=== PATIENT | female | born 1960 | race Caucasian/White ===

== ENCOUNTER 2020-05-14 11:44 | Outpatient (REF) | payer MEDICAID, SELFPAY ==
[2020-05-14 13:53] LABS: Anion Gap 12 (12-20); Blood Urea Nitrogen 10 mg/dL (9-16); Carbon Dioxide 29 mmol/L (22-29); Chloride 105 mmol/L (96-108); Estimated Glomerular Filt Rate > 60; Glucose Random 114 mg/dL (60-115); Potassium 4.3 mmol/L (3.3-5.1); Sodium 142 mmol/L (135-145)
== END 2020-05-14 11:45 | disposition home or self-care (01) ==
LOC: HO.LAB 11:44
PROVIDERS: PCP Internal Medicine; Visit Provider Internal Medicine
DX: I10 Essential (primary) hypertension (principal)
CPT/HCPCS: 36415; 80048

== ENCOUNTER 2022-12-02 10:53 | Outpatient (REF) | payer MEDICAID, SELFPAY ==
[2022-12-02 14:15] LABS: MANUAL DIFF FLAG NO
[2022-12-02 14:18] LABS: Basophils Percent Auto 0.3 % (0-2); Eosinophils Absolute Auto 0.2 X10*3/uL (0.0-0.4); Eosinophils Percent Auto 2.4 % (0-4); Hematocrit 40.4 % (37.0-47.0); Hemoglobin 13.4 g/dl (12.0-16.0); Imm Gran Abs Auto 0.03 X10*3/uL (0.00-0.03); Imm Gran Pct Auto 0.4 % (0.0-0.4); Lymphocytes Percent Auto 39.6 % (20-40); Mean Corpuscular HGB Conc 33.2 g/dl (31.0-35.0); Mean Corpuscular Hemoglobin 30.5 pg (27.0-33.0); Mean Platelet Volume 10.8 fL (9.4-12.3); Monocytes Absolute Auto 0.4 X10*3/uL (0.1-1.2); Monocytes Percent Auto 5.5 % (2-11); Neutrophils Absolute Auto 3.9 x10*3/uL (2.0-8.3); Neutrophils Percent Auto 51.8 % (45-73); Platelet Count 313 X10*3/uL (160-400); Red Blood Count 4.39 X10*6/uL (4.20-5.50); Red Cell Distribution Width 13.3 % (11.0-16.0); White Blood Count 7.5 X10*3/uL (4.8-10.8)
[2022-12-02 14:35] LABS: Alanine Aminotransferase 21 U/L (0-31); Alkaline Phosphatase 84 U/L (39-117); Anion Gap 12 (12-20); Aspartate Amino Transferase 22 U/L (5-31); Bilirubin Direct 0.1 mg/dL (0.0-0.5); Bilirubin Total 0.3 mg/dL (0.0-1.0); Blood Urea Nitrogen 9 mg/dL (9-16); Calcium 9.7 mg/dL (8.4-10.2); Carbon Dioxide 28 mmol/L (22-29); Chloride 107 mmol/L (96-108); Estimated Glomerular Filt Rate > 60; Glucose Fasting 118 mg/dL (60-99); Potassium 4.1 mmol/L (3.3-5.1); Sodium 143 mmol/L (135-145); Total Protein 7.3 g/dL (6.5-8.0)
[2022-12-02 14:49] LABS: Estimated Average Glucose 131 mg/dL; Hemoglobin A1c % 6.2 % (<6.0)
[2022-12-02 14:53] LABS: TSH reflex Free T4 2.14 uIU/mL (0.32-4.0)
== END 2022-12-02 10:54 | disposition home or self-care (01) ==
LOC: HO.CHCLDS 10:53
PROVIDERS: Visit Provider Internal Medicine
DX: Z00.00 Encounter for general adult medical examination without abnormal findings (principal); I15.8 Other secondary hypertension; R73.01 Impaired fasting glucose
CPT/HCPCS: 36415; 80048; 80076; 83036; 84443; 85025

== ENCOUNTER 2023-06-01 10:16 | Outpatient (REF) | payer MEDICAID, SELFPAY ==
[2023-06-01 16:10] LABS: Cholesterol 215 mg/dL (<200); HDL Cholesterol 47 mg/dL (>40); LDL Cholesterol Calculated 143 mg/dL (<100); Triglycerides 128 mg/dL (<150)
== END 2023-06-01 10:17 | disposition home or self-care (01) ==
LOC: HO.CHCLDS 10:16
PROVIDERS: Visit Provider Internal Medicine
DX: E11.9 Type 2 diabetes mellitus without complications (principal)
CPT/HCPCS: 36415; 80061

== ENCOUNTER 2024-07-06 14:43 | Outpatient (REF) | payer MEDICAID, SELFPAY ==
--- OUTSIDE RECORDS SUMMARY | 2024-07-06 17:22 | XMS_ITS | Encounter Summary ---
Author Organization [employer] [facility] Address [address] [place] [address] 7 [place] [address] Care Team Providers Care Cheese Cutter Name Role Phone Carmen Fiore MD Primary Care Provider [phone] Reason for Referral * Consultation (Urgent) - Authorized Specialty Diagnoses / Procedures Referred By Contac t Referred To Contact Urogynecology Diagnoses Uterine prolapse Debora Camarena CNM [address] [place] [address] Phone: tel: fax: [facility] Referral ID Status Reason Start Date Expiration Date Visits Requested Visits Authorized [id number] Authorized Specialty Services Required 07/06/2024 07/06/2025 1 1 * Imaging (Routine) - Authorized Specialty Diagnoses / Procedures Referred By Contac t Referred To Contact Radiology Diagnoses Menopausal and female climacteric states Unspecified menopausal and perimenopausal disorder Procedures BD DEXA Axial Debora Camarena CNM [address] [place] [address] Phone: tel: fax: [facility] [address] [place] [address] Phone: tel: fax: Referral ID Status Reason Start Date Expiration Date V isits Requested Visits Authorized [id number] Authorized 07/06/2024 07/06/2025 1 1 Reason for Visit * Reason Comments Gynecologic Exam Encounter Details Date Type Department Care Team (Latest Contact Info) Description 07/06/2024 11:00 AM EDT Procedure Visit [facility] [address] [place] [address] Nicol Debora, CNM [address] [place] [address] Cervical cancer screening (Primary Dx); Unspecified menopausal and perimenopausal disorder; Uterine prolapse Social History Tobacco Use Types Packs/Day Years Used Date Smoking Tobacco: Every Day Cigarettes 1 40 Smokeless Tobacco: Never Tobacco Cessation:Ready to Q uit: Not Asked; Counseling Given: Not Answered Alcohol Use Standard Drinks/Week Comments Not Currently 0 (1 standard drink = 0.6 oz pur e alcohol) Depression Answer Date Recorded Patient Health Questionnaire-9 Score 0 01/20/2024 Patient Health Questionnaire-9 Score 0 01/20/2024 Last PHQ-9: Questionnaire Data Not on file 1 Housing Stability Answer Date Recorded What is your housing situation today? I have bella luna 11/26/[address] you li ve. Do you have problems with any of the following? None of the above 11/26/2023 Food Insecurity Answer Date Recorded Within the past 12 months, y ou worried that your food would run out before you got money to buy more: Never True 11/26/2023 Within the past 12 months,th e food you bought just didn't last and you didn't have enough money to get more: Never True Transportation Answer Date Recorded In the past 12 months, has l ack of transportation kept you from medical appts, meetings, work or from getting things needed for daily living? No 11/26/2023 Utilities Answer Date Recorded In the past 12 months, has t he electric, gas, oil or water company threatened to shut off services in your home? No 11/26/2023 Depression Answer Date Recorded Patient Health Questionnaire-2 Score 0 01/20/2024 Internet Access Answer Date Recorded Internet Access Q1 Yes 11/26/2023 Internet Access Q2 Not on file 11/26/2023 Comments No Sex and Gender Information Value Date Recorded Sex Assigned at Female 01/26/2022 10:15 AM EDT Legal Sex Female 10:15 AM EDT Gender Identity Female 01/26/2022 10:15 AM EDT Sexual Orientation Straight 01/26/2022 10 :15 AM EDT documented as of this encounter Last Filed Vital Signs Vital Sign Reading Time Taken Comments Blood Pressure 133/73 07/06/2024 11:03 AM EDT Pulse 69 07/06/2024 11:03 AM EDT Temperature 36.4 ??C (97.5 ??F) 07/06/2024 11:03 AM E DT Respiratory Rate 20 07/06/2024 11:03 AM EDT Oxygen Saturation 97% 07/06/2024 11:03 AM EDT Inhaled Oxygen Concentration - - Weight 72.7 kg (160 lb 3.2 oz) 07/06/2024 11:03 AM EDT Height 154.9 cm (5' 1 ) 07/06/2024 11:03 AM EDT Body Mass Index 30.27 07/06/2024 11:03 AM EDT documented in this encounter Progress Notes * Debora Camarena CNM - 07/06/2024 11:00 AM EDT Subjective Patient ID: Giuliana Bill is a 63 y.o. female who presents for pap Here with , John, who remained for visit with Giuliana's consent. No pap on file. Previously declined mammogram and BMD. Mammogram was very painful, adamant about not having another. Open to BMD after discussion of testing. No personal fracture. Notes vaginal mass sensation, no other vaginal/urinary symptoms. Thinks last pap about 7 y ago, no prior abnormal. Patient seen in conjunction with LISA Amaya student. I was present for and confirmed all pertinent elements in the history, exam, assessment of the patient, and the plan of care, and agree with all findings. Review of Systems Genitourinary: Negative for dyspareunia, dysuria, frequency, genital sores, hematuria, menstrual problem, pelvic pain, urgency, vaginal bleeding, vaginal discharge and vaginal pain. No abnormal pap, no abnormal bleeding, no breast pain, no breast mass, no nipple discharge Objective BP 133/73 (BP Location: Left arm, Patient Position: Sitting, BP Cuff Size: Large adult) Pulse 69 Temp 97.5 ??F (36.4 ??C) (Oral) Resp 20 Ht 5' 1 (1.549 m) Wt 160 lb 3.2 oz (72.7 kg) HrP162% BMI 30.27 kg/m?? Physical Exam Exam conducted with a aircraft ordnance technician present (Debora Camarena). Constitutional: Appearance: Normal appearance. Chest: Breasts: Right: Normal. No swelling, bleeding, inverted nipple, mass, nipple discharge, skin change or tenderness. Left: Normal. No swelling, bleeding, inverted nipple, mass, nipple discharge, skin change or tenderness. Genitourinary: General: Normal vulva. Labia: Right: No rash, tenderness, lesion or injury. Left: No rash, tenderness, lesion or injury. Vagina: Normal. No signs of injury and foreign body. No vaginal discharge, erythema, tenderness, bleeding or lesions. Cervix: No cervical motion tenderness, discharge, friability, lesion, erythema, cervical bleeding or eversion. Uterus: Normal. Not enlarged and not tender. Adnexa: Right adnexa normal and left adnexa normal. Right: No mass, tenderness or fullness. Left: No mass, tenderness or fullness. Comments: Ovaries non palpable bilaterally. Poor tone with Kegels, mild uterine as well as vaginal wall prolapse noted. Lymphadenopathy: Upper Body: Right upper body: No supraclavicular or axillary adenopathy. Left upper body: No supraclavicular or axillary adenopathy. Neurological: Mental Status: She is alert. Psychiatric: Mood and Affect: Mood normal. Behavior: Behavior normal. Assessment/Plan Diagnoses and all orders for this visit: Cervical cancer screening - Pap Smear Pap/HPV sent today. Will contact with results. Repeat 5 years if normal. Report bleeding. Strongly urged to get mammogram. Can premedicate with NSAIDs or Tylenol. She will think about it. Unspecified menopausal and perimenopausal disorder - BD DEXA Axial; Future BMD ordered. Uterine prolapse - Referral to Urogynecology; Future Symptomatic. Albino taught and referred to urogyn for further evaluation. documented in this encounter Plan of Treatment Scheduled Orders Name Type Priority Associated Diagnoses Orde r Schedule Pap Smear Pathology and Cytology Routine Cervical cancer screening Ordered: 07/06/2024 BD DEXA Axial Imaging Routine Unspecified menopausal and perimenopausal disorder Expected: 07/06/2024, Expires: 07/06/2025 Scheduled Referrals Name Type Priority Associated Diagnoses Order Schedule Referral to Urogynecology Outpatient Referral Urgent Uterine prolapse Expected: 07/06/2024 (Approximate), Expires: 07/06/2025 documented as of this encounter Visit Diagnoses Diagnosis Cervical cancer screening- Primary Screening for malignant neoplasm of the cervix Unspecified menopausal and perimenopausal disorder Uterine prolapse Uterine prolapse without mention of vaginal wall prolapse documented in this encounter Additional Health Concerns Assessment Noted Time PHQ-9 Depression Total Score: 0 01/20/20 24 11:18 AM EDT documented as of this encounter Care Teams Cheese Cutter Relationship Specialty Start Date End Date Carmen Fiore MD [address] [place] [address] PCP - General Internal Medicine 03/29/18 documented as of this encounter
--- OUTSIDE RECORDS SUMMARY | 2024-07-06 17:22 | XMS_ITS | Encounter Summary ---
Author Organization [employer] [facility] Address [address] [place] [address] 7 [place] [address] Care Team Providers Care Profiler Operator Name Role Phone Carmen Fiore MD Primary Care Provider [phone] Encounter Details Date Type Department Care Team (Late st Contact Info) Description 02/18/2024 Orders Only [facility] [address] [place] [address] Provider, MD Cristi Social History Tobacco Use Types Packs/Day Years Used Date Smoking Tobacco: Every Day Cigarettes 1 40 Smokeless Tobacco: Never Depression Answer Date Recorded Patient Health Questionnaire-9 [...] Access Q2 Not on file 11/26/2023 Comments Unknown Sex and Gender Information Value Date Recorded Sex Assigned at Female 01/26/2022 10:15 AM EDT Legal Sex Female 10:15 AM EDT Gender Identity Female 01/26/2022 10:15 AM EDT Sexual Orientation Straight 01/26/2022 10 :15 AM EDT documented as of this encounter Miscellaneous Notes * Result Encounter Note - Carmen Fiore MD - 02/18/2024 1:16 PM EST Please call. The CT scan of the right lung was reviewed and shows some small nodules of the less then 30 mm. A low-dose CT scan should be scheduled in 1 year for screening purposes documented in this encounter Plan of Treatment Not on file documented as of this encounter Procedures Procedure Name Priority Date/Time Associated Diagnosis Comments HM LUNG CANCER SCREENING Routine 02/16/2024 1:16 PM EST documented in this encounter Results * Hm Lung Cancer Screning (02/16/2024 1:16 PM EST) Anatomical Region Laterality Modality Other us Historical Provider HEALTH MAINTENANCE Final Result documented in this encounter Visit Diagnoses Not on filedocumented in this encounter Additional Health Concerns Assessment Noted Time PHQ-9 Depression Total Score: 0 01/20/20 24 11:18 AM EDT documented as of this encounter Care Teams Profiler Operator Relationship Specialty Start Date End Date Carmen Fiore MD [address] [place] [address] PCP - General Internal Medicine 03/29/18 documented as of this encounter
--- OUTSIDE RECORDS SUMMARY | 2024-07-06 17:22 | XMS_ITS | Clinical Summary ---
Author Organization [employer] Address [address] [place] [address] 7t [place] [address] Care Team Providers Care Box Truck Driver Name Role Phone Carmen Fiore MD Primary Care Provider [phone] Allergies No known active allergies Medications Lancets miscIndications :Type 2 diabetes mellitus without complication, without long-term current use of insulin ([facility]) Use to test blood sugar 2 times daily 100 each 06/01/2023 Active Alcohol Swabs 70 % padsIndications :Type 2 diabetes mellitus without complication, without long-term current use of insulin ([facility]) Use to test blood sugar 2 times daily 100 each 06/01/2023 Active Blood Glucose Monitoring Suppl ([employer]Style [place] Lite) w/Device kitIndications: Type 2 diabetes mellitus without complication, without long-term current use of insulin ([facility]) Use to test blood sugar 2 times daily 1 kit 06/01/2023 Active glucose 4 g chewable tabletIndicatio ns:Type 2 diabetes mellitus without complication, without long-term current use of insulin ([facility]) Chew 4 tablets (16 g) if needed for low blood sugar. 50 tablet 12 06/01/2023 Active amLODIPine (Norvasc) 10 MG tablet TAKE ONE TABLET DAILY 90 tablet 1 04/05/2024 Active Active Problems Problem Noted Date Diagnosed Date Smoking 05/09/2024 Type 2 diabetes mellitus wit hout complication, without long-term current use of insulin 09/02/2023 IFG (impaired fasting glucose) 12/02/2016 Hypertension 04/28/2013 Encounters Date Type Department Care Team Description 07/06/2024 11:00 AM EDT Procedure Visit [facility] MED & PEDS [address] [place] [address] Debora Camarena CNM Cervical cancer screening (Primary Dx); Unspecified menopausal and perimenopausal disorder; Uterine prolapse 07/06/2024 Travel 05/09/2024 9:15 AM EST Office Visit [facility] MED & PEDS [address] [place] [address] Carmen Fiore MD Type 2 diabetes mellitus without complication, without long-term current use of insulin (CMS/HCC) (Primary Dx); Primary hypertension; Screening for colon cancer; Smoking 05/09/2024 Travel 05/02/2024 Patient Outreach [facility] & PED[facility] [address] [place] [address] Carmen Fiore MD Pre-visit Planning (SDOH negative. Tobacco screening negative. ) from Last 3 Months Immunizations Name Administration Dates Next Due Moderna Covid-19 Vaccine 12+ 09/28/2020,09/01/19 21 Tdap 10/03/2015 Family History Medical History Relation Name Comments Heart attack Father Hypertension Mother Stroke Mother Relation Name Status Comments Father Mother Social History Tobacco Use Types Packs/Day Years [...] is your housing situation today? I have bellaalban luna 11/26/[address] you [...] Orientation Straight 01/26/2022 10 :15 AM EDT Last Filed Vital Signs Vital Sign Reading [...] Mass Index 30.27 07/06/2024 11:03 AM EDT Plan of Treatment Health Maintenance Due Date Last Done Comments CT Colonography 1958 FIT DNA/Cologuard 1958 FIT 1958 FOBT 1958 Sigmoidoscopy 1958 Eye Exam 1968 Alcohol/Substance Use Screening 1970 Diabetes: Urine Protein Screening 1977 Pap Smear 11/06/1979 Cervical Cancer Screening 1988 HPV/Cotest 1988 Colonoscopy 08/02/2023 08/01/2013 Colorectal Cancer Screening 08/02/2023 Lipid Panel 05/31/2024 06/01/2023, 10/10/2021 Diabetes: Hemoglobin A1C 08/06/2024 025, 01/20/2024, 09/02/2023, Additional history exists Zoster Vaccines (1 of 2) 09/01/2024 Pos tponed from 2008 (Patient Refused) Influenza Vaccine (#1) 2024 Postp oned from 11/28/2023 (Patient Refused) COVID-19 Vaccine ( - season) 2025 09/28/2020, 08/31/2020 Postponed from 11/28/2023 (Patient Refused) Depression Screening 01/19/2025 01/20/2024, 01/20/20 Diabetes: Foot Exam 01/19/2025 01/20/2024 Pneumococcal Vaccine: 50+ Years (1 of 2 - PCV) 01/19/2025 Postponed from 1977 (Patient Refused) Lung Cancer Screening 02/15/2025 02/16/2024 SDOH Screening 05/02/2025 05/02/2024 Tobacco Screening 07/06/2025 07/06/2024 DTaP/Tdap/Td Vaccines (2 - Td or Tdap) 10/02/2025 10/03/2015 RSV Patients and Patients Aged 60 years or older (1 - 1-dose 75+ series) 2033 Hepatitis C Screening Discontinued 10/10/2021 HIB Vaccines Aged Out No longer eligi ble based on patient's age to complete this topic HPV Vaccines Aged Out No longer eligi ble based on patient's age to complete this topic Hepatitis A Vaccines Aged Out No long er eligible based on patient's age to complete this topic Hepatitis B Vaccines Aged Out No long er eligible based on patient's age to complete this topic IPV Vaccines Aged Out No longer eligi ble based on patient's age to complete this topic Mammogram Discontinued Meningococcal Vaccine Aged Out No robin olga eligible based on patient's age to complete this topic RSV under 20 months Aged Out No longe r eligible based on patient's age to complete this topic Rotavirus Vaccines Aged Out No longer eligible based on patient's age to complete this topic Procedures Procedure Name Priority Date/Time Associated Diagnosis Comments POCT GLUCOSE Routine 05/09/2024 1:55 PM EST Type 2 diabetes mellitus without complication, without long-term current use of insulin (CMS/HCC) POCT GLYCATED HEMOGLOBIN, TOTAL Routine 05/09/2024 1:54 PM EST Type 2 diabetes mellitus without complication, without long-term current use of insulin (CMS/HCC) HM LUNG CANCER SCREENING Routine 02/16/2024 1:16 PM EST LIPID PANEL, STANDARD Routine 06/01/2023 10:18 AM EST Type 2 diabetes mellitus without complication, without long-term current use of insulin (CMS/HCC) ZZZ HISTORICAL HEPATITIS C AB W/REFL TO HCV RNA, QN, PCR Routine 10/10/2021 8:44 AM EDT HM COLONOSCOPY Routine 08/01/2013 from Last 3 Months or Most Recently Relevant to Health Maintenance Results * POCT Glucose (05/09/2024 1:55 PM EST) Glucose Blood, POC 171 60 - 200 mg/dL QC Media Lot # [id number] Lot# Expiration Date [id number] Comment:random Blood Capillary blood specimen / Unknown 05/09/2024 1:55 PM EST Carmen Fiore MD POINT OF CARE TEST ENTER/ED IT ORDERABLES Final Result * (ABNORMAL) POCT HGB A1C (05/09/2024 1:54 PM EST) Hemoglobin A1C 7.3(A) 4.0 - 6.0 % QC Media Lot # [id number] Lot# Expiration Date [id number] Blood 05/09/2024 1:54 PM EST Carmen Fiore MD POINT OF CARE TEST ENTER/ED IT ORDERABLES Final Result * Lung Cancer Screning (02/16/2024 1:16 PM EST) Anatomical Region Laterality Modality Other us Historical Provider HEALTH MAINTENANCE Final Result * (ABNORMAL) Lipid Panel, Standard (06/01/2023 10:18 AM EST) Triglycerides 128 <150 mg/dL [facility] Comment:Desirable Triglyceri de: less than 150 mg/dLBorderline High Triglyceride 150-199 mg/dLHigh Triglyceride: 200-499 mg/dLVery High Triglyceride: greater than or equal to 5OO mg/dL Cholesterol 215(H) <200 mg/dL [facility] Comment:Desirable Cholestero l: less than 200 mg/dLBorderline High Cholesterol: 200-239 mg/dLHigh Cholesterol: greater than 239 mg/dL LDL Cholesterol Calculated 143(H) <100 mg/dL [facility] Comment:Desirable LDL: less than 100 mg/dLNear Optimal/Above Optimal LDL: 110- 129 mg/dLBorderline High LDL: 130-159 mg/dLHigh LDL: 160-189 mg/dLVery High LDL: greater than or equal to 190 mg/dL HDL Cholesterol 47 >40 mg/dL [facility] Comment:Desirable HDL: great er than 40 mg/dL Note: This HDL assay may give artificially low results in patients with liver disease. Blood Venous blood specimen / Unknown 06/01/2023 10:18 AM EST 06/01/2023 2:15 PM EST Carmen Fiore MD LAB BLOOD ORDERABLES Final Result [facility] [address] [place] [address] [phone] * HEPATITIS C AB W/REFL TO HCV RNA, QN, PCR (10/10/2021 8:44 AM EDT) HEPATITIS C ANTIBODY NON-REACT KILO NON-REACT KILO [facility] INDEX 0.11 <1.00 [facility] Comment: ?? HCV antibody was non-reactive. There is no laboratory ?? evidence of HCV infection. ?? In most cases, no further action is required. However, if recent HCV exposure is suspected, a test for HCV RNA (test code 98275) is suggested. ?? For additional information please refer to http://education.[employer]/faq/PVG33c3 (This link is being provided for informational/ educational purposes only.) ?? 10/10/2021 8:44 AM EDT Carmen Fiore MD HISTORICAL/NON ORDERABLE LA BS Final Result [facility] [address] * Colonoscopy (08/01/2013) Colonoscopy Normal Normal Narrative Cynthia Gandhi - 08/01/2013 Recommended 5 year follow up Historical Provider HEALTH MAINTENANCE Final Result from Last 3 Months or Most Recently Relevant to Health Maintenance Insurance [facility] STANDARD [place] [address] [place] [phone] Care Teams Box Truck Driver Relationship Specialty Start Date End Date Carmen Fiore MD [address] [place] [address] JESÚS Nieves [address] PCP - General Internal Medicine 03/29/18
--- OUTSIDE RECORDS SUMMARY | 2024-07-06 17:22 | XMS_ITS | Encounter Summary ---
Author Organization [employer] Address [address] [facility] [address] [place] [address] Care Team Providers Care Professor/Nurse Anesthetist Name Role Phone Carmen Fiore MD Primary Care Provider [phone] Encounter Details Date Type Department Care Team (Late st Contact Info) Description 02/01/2023 Abstract [facility] [address] [place] [address] Carmen Fiore MD [address] [place], [place] [id number] Social History Tobacco Use Types Packs/Day Years Used Date Smoking Tobacco: Every Day Cigarettes 1 40 Smokeless Tobacco: Never Depression Answer Date Recorded Patient Health Questionnaire-9 Score 0 12/02/2022 Housing Stability Answer Date Recorded What is your housing situation today? I have bellaalban luna 02/01/[address] you li ve. Do you have problems with any of the following? None of the above 02/01/2023 Food Insecurity Answer Date Recorded Within the past 12 months, y ou worried that your food would run out before you got money to buy more: Never True 02/01/2023 Within the past 12 months,th e food you bought just didn't last and you didn't have enough money to get more: Never True 08/2022 Transportation Answer Date Recorded In the past 12 months, has l ack of transportation kept you from medical appts, meetings, work or from getting things needed for daily living? No 02/01/2023 Utilities Answer Date Recorded In the past 12 months, has t he electric, gas, oil or water company threatened to shut off services in your home? No 02/01/2023 Depression Answer Date Recorded Patient Health Questionnaire-2 Score 0 12/02/2022 Comments Unknown Sex and Gender Information Value Date Recorded Sex Assigned at Female 01/26/2022 10:15 AM EDT Legal Sex Female 10:15 AM EDT Gender Identity Female 01/26/2022 10:15 AM EDT Sexual Orientation Straight 01/26/2022 10 :15 AM EDT documented as of this encounter Plan of Treatment Not on file documented as of this encounter Procedures Procedure Name Priority Date/Time Associated Diagnosis Comments COLONOSCOPY Routine 08/01/2013 documented in this encounter Results * Hm Colonoscopy (08/01/2013) Colonoscopy Normal Normal Narrative Cynthia Gandhi - 08/01/2013 Recommended 5 year follow up Historical Provider HEALTH MAINTENANCE Final Result documented in this encounter Visit Diagnoses Not on filedocumented in this encounter Additional Health Concerns Assessment Noted Time PHQ-9 Depression Total Score: 0 12/03/19 23 10:23 AM EDT documented as of this encounter Care Teams Professor/Nurse Anesthetist Relationship Specialty Start Date End Date Carmen Fiore MD [address] [place] [address] PCP - General Internal Medicine 03/29/18 documented as of this encounter
--- OUTSIDE RECORDS SUMMARY | 2024-07-06 17:22 | XMS_ITS | Encounter Summary ---
Author Organization [employer] [facility] Address [address] [place] [address] [address]t [place] [address] Care Team Providers Care Paper Coater Name Role Phone Carmen Fiore MD Primary Care Provider [phone] Encounter Details Date Type Department Care Team (Latest Contact Info) Description 07/06/2024 Travel Social History Tobacco Use Types Packs/Day Years Used Date Smoking Tobacco: Every Day Cigarettes 1 40 Smokeless Tobacco: Never Alcohol Use Standard Drinks/Week Comments Not Currently [...] on file documented as of this encounter Visit Diagnoses Not on filedocumented in this encounter Additional Health Concerns Assessment Noted Time PHQ-9 Depression Total Score: 0 01/20/20 24 11:18 AM EDT documented as of this encounter Care Teams Paper Coater Relationship Specialty Start Date End Date Carmen Fiore MD [address] [place] [address] PCP - General Internal Medicine 03/29/18 documented as of this encounter
--- OUTSIDE RECORDS SUMMARY | 2024-07-06 17:22 | XMS_ITS | Encounter Summary ---
Author Organization [employer] Address [address] [place] [address] 7 [place] [address] Care Team Providers Care Fiscal Specialist Name Role Phone Carmen Fiore MD Primary Care Provider [phone] Encounter Details Date Type Department Care Team ([facility] st Contact Info) Description 06/02/[address] [facility] [address] [place], [place] [phone] Carmen Fiore MD [address] [place], [place] [phone] Social History Tobacco Use Types Packs/Day Years Used Date Smoking Tobacco: Every Day Cigarettes 1 40 Smokeless Tobacco: Never Depression Answer Date Recorded Patient Health Questionnaire-9 Score 0 12/02/2022 Housing Stability Answer Date Recorded What is your housing situation today? I have bella luna 02/01/[address] you [...] documented as of this encounter Care Teams Fiscal Specialist Relationship Specialty Start Date End Date Carmen Fiore MD [address] [place] [phone] PCP - General Internal Medicine 03/29/18 documented as of this encounter
--- OUTSIDE RECORDS SUMMARY | 2024-07-06 17:22 | XMS_ITS | Encounter Summary ---
Author Organization [employer] Address [address] [facility] 7t [place] [address] Care Team Providers Care Relocation Specialist Name Role Phone Carmen Fiore MD Primary Care Provider [phone] Encounter Details Date Type Department Care Team (Late st Contact Info) Description 10/02/2022 Orders Only [facility] MED [facility] PEDS [address] [place] [id number] Lori Rivera LPN Social History Tobacco Use Types Packs/Day Years Used Date Smoking Tobacco: Never Assessed Comments Unknown Sex and Gender Information Value Date Recorded Sex Assigned at Female 01/26/2022 10:15 AM EDT Legal Sex Female 10:15 AM EDT Gender Identity Female 01/26/2022 10:15 AM EDT Sexual Orientation Straight 01/26/2022 10 :15 AM EDT documented as of this encounter Plan of Treatment Not on file documented as of this encounter Procedures Procedure Name Priority Date/Time Associated Diagnosis Comments BASIC METABOLIC PANEL, FASTING Routine 12/02/2022 10:57 AM EDT documented in this encounter Results * (ABNORMAL) Basic Metabolic Panel, Fasting (12/02/2022 10:57 AM EDT) Sodium 143 135 - 145 mmol/L [facility] Potassium 4.1 3.3 - 5.1 mmol/L [facility] Chloride 107 96 - 108 mmol/L [facility] Carbon Dioxide 28 22 - 29 mmol/L [facility] Anion Gap 12 12 - 20 [facility] Urea Nitrogen (BUN) 9 9 - 16 mg/dL [facility] Creatinine, Serum 0.86 0.5 - 1.4 mg/dL [facility] Estimated Glomerular Filt Rate >60 [facility] Comment:NOTE: For -Am erican individuals, multiply the result by 1.210.Chronic Kidney Disease: Estimated GFR < 60 mL/min/1.84p7Ujplth Kidney Disease: Estimated GFR < 15 mL/min/1.73m2 Glucose Fasting 118(H) 60 - 99 mg/dL [facility] Comment:A fasting glucose fr om 100-125 mg/dl is considered impaired(pre-diabetes). Calcium 9.7 8.4 - 10.2 mg/dL [facility] 12/02/2022 10:5 7 AM EDT 12/02/2022 2:09 PM EDT Carmen Fiore MD LAB BLOOD ORDERABLES Final Result Performing Organization Address City/State/[facility] Co de Phone Number [facility] [address] [place] [address] [phone] documented in this encounter Visit Diagnoses Not on filedocumented in this encounter Care Teams Relocation Specialist Relationship Specialty Start Date End Date Carmen Fiore MD [address] [place] [phone] PCP - General Internal Medicine 03/29/18 documented as of this encounter
[2024-07-11 14:21] LABS: HPV Genotype 16 Negative (Negative); HPV Genotype 18 Negative (Negative); HPV High Risk Negative (Negative)
== END 2024-07-06 14:44 | disposition home or self-care (01) ==
LOC: HO.CHCLNP 14:43
PROVIDERS: Visit Provider Advanced Practice Midwife
DX: Z12.4 Encounter for screening for malignant neoplasm of cervix (principal)
CPT/HCPCS: 87626; 88175

== ENCOUNTER 2025-02-07 11:53 | Outpatient (REF) | payer MEDICARE, SELFPAY ==
--- OUTSIDE RECORDS SUMMARY | 2025-02-07 10:45 | XMS_ITS | Encounter Summary ---
Author Organization [employer] Address [address] [place] [address] [place] [address] Care Team Providers Care Assurance Manager Name Role Phone Carmen Fiore MD Primary Care Provider [phone] Reason for Referral * Consultation (Routine) - Authorized Specialty Diagnoses / Procedures Referred By Hubert t Referred To Contact Nutrition Diagnoses Type 2 diabetes mellitus without complication, without long-term current use of insulin (HCC) Carmen Fiore MD [address] [place] [address] Phone: tel: fax: Referral ID Status Reason Start Date Expiration Date Visits Requested Visits Authorized [id number] Authorized Consult and Treat 02/07/2025 02/07/2026 1 1 * Consultation (Routine) - Pending Review Specialty Diagnoses / Procedures Referred By Contac t Referred To Contact Cardiology Diagnoses Bradycardia Carmen Fiore MD [address] [place] [address] Phone: tel: fax: Referral ID Status Reason Start Date Expiration Date Visits Requested Visits Authorized [id number] Pending Review Specialty Services Required 02/07/2026 1 1 * Cardiology (Routine) - Authorized Specialty Diagnoses / Procedures Referred By Contac t Referred To Contact Cardiology Diagnoses Bradycardia Procedures Holter monitor - 48 hour Carmen Fiore MD [address] [place] [phone] Phone: tel: fax: [place] [phone] [place], [place] Phone: tel: fax: Referral ID Status Reason Start Date Expiration Date V isits Requested Visits Authorized [id number] Authorized 02/07/2025 02/07/2026 1 1 Reason for Visit * Reason Comments extended office visit Encounter Details Date Type Department Care Team (Late st Contact Info) Description 02/07/2025 10:45 AM EST Office Visit [facility] [address] [place] [address] Carmen Fiore MD [address] [place] [address] Other secondary hypertension (Primary Dx); Type 2 diabetes mellitus without complication, without long-term current use of insulin (HCC); Smoking addiction; Bradycardia; Dietary counseling; Exercise counseling; Overweight Social History Tobacco Use Types Packs/Day Years [...] Sign Reading Time Taken Comments Blood Pressure 122/68 02/07/2025 11:11 AM EST Pulse 45 02/07/2025 11:11 AM EST Temperature 36.8 C (98.2 F) 02/07/2025 11:11 AM EST Respiratory Rate 20 02/07/2025 11:11 AM EST Oxygen Saturation 96% 02/07/2025 11:11 AM EST Inhaled Oxygen Concentration - - Weight 71.7 kg (158 lb) 02/07/2025 11:11 AM EST Height 154.9 cm (5' 1 ) 02/07/2025 11:11 AM EST Body Mass Index 29.85 02/07/2025 11:11 AM EST documented in this encounter Progress Notes * Carmen Fiore MD - 02/07/2025 10:45 AM EST SUBJECTIVE Giuliana Bill is a 64 y.o. female who presents for extended office visit. Giuliana Bill, 64-year-old female - Last annual pulmonary imaging performed February 18, 2024 in [place], reported as normal withno acute pulmonary process - Denies headache - Denies dizziness, including with positional changes - Reports continued smoking - Reports history of diabetes with recent increase in blood sugar, A1c 8.3 Problem List[1] Allergies[2] Medications Ordered Prior to Encounter[3] Review of Systems Constitutional: Negative for activity change, appetite change, chills and diaphoresis. HENT: Negative for dental problem, drooling, ear discharge, ear pain and hearing loss. Eyes: Negative for pain, discharge and itching. Respiratory: Negative for cough, choking and chest tightness. Cardiovascular: Negative for chest pain and leg swelling. Gastrointestinal: Negative for blood in stool and diarrhea. Genitourinary: Negative for difficulty urinating, dyspareunia, dysuria, enuresis, flank pain, frequency and genital sores. Musculoskeletal: Negative for arthralgias, gait problem and joint swelling. Skin: Negative for pallor. Neurological: Negative for dizziness, seizures, speech difficulty, light- headedness and numbness. Psychiatric/Behavioral: Negative for behavioral problems, confusion and decreased concentration. OBJECTIVE Vitals: 02/07/25 1111 BP: 122/68 BP Location: Left arm Patient Position: Sitting BP Cuff Size: Adult long Pulse: (!) 45 Resp: 20 Temp: 98.2 ??F (36.8 ??C) TempSrc: Oral SpO2: 96% Weight: 158 lb (71.7 kg) Height: 5' 1 (1.549 m) Physical Exam Constitutional: General: She is not in acute distress. Appearance: Normal appearance. She is not ill-appearing, toxic-appearing or diaphoretic. HENT: Head: Normocephalic. Right Ear: There is no impacted cerumen. Left Ear: There is no impacted cerumen. Nose: No congestion or rhinorrhea. Mouth/Throat: Pharynx: No oropharyngeal exudate or posterior oropharyngeal erythema. Cardiovascular: Rate and Rhythm: Normal rate. Heart sounds: No murmur heard. No friction rub. Pulmonary: Effort: Pulmonary effort is normal. No respiratory distress. Breath sounds: No stridor. Abdominal: Palpations: Abdomen is soft. Musculoskeletal: General: Normal range of motion. Skin: General: Skin is warm. Neurological: General: No focal deficit present. Mental Status: She is alert. Psychiatric: Mood and Affect: Mood normal. Assessment/Plan Assessment/Plan Diagnoses and all orders for this visit: Other secondary hypertension - CBC auto differential; Future - Comprehensive Metabolic Panel; Future - Lipid Panel, Standard; Future - TSH with Reflex to Free T4; Future Type 2 diabetes mellitus without complication, without long-term current use of insulin (HCC) - CBC auto differential; Future - Comprehensive Metabolic Panel; Future - Lipid Panel, Standard; Future - TSH with Reflex to Free T4; Future - Albumin, Random Urine W/Creatinine; Future - POCT Glucose - POCT Hgb A1c - Referral to Nutrition Therapy; Future Smoking addiction Ms Giuliana Bill is not interested in getting help to quit smoking for now. Bradycardia - Holter monitor - 48 hour; Future - Referral to Cardiology; Future - ECG 12 lead Dietary counseling Exercise counseling Overweight Dietary Recommendations: Fruits, vegetables, whole grains, protein foods, and fat-free or low-fat dairy products are healthychoices. Eat different types of protein foods in your diet. This can include seafood, lean meats, poultry, beans, peas, lentils, nuts, seeds, soy products, and eggs. Limit foods and beverages higher in added sugars, saturated fat, and sodium. Exercise Recommendations: At least 150 minutes of moderate-intensity physical activity per week, or an equivalent combinationof moderate- and vigorous-intensity activity Other secondary hypertension: - Continue current antihypertensive medication. Type 2 diabetes mellitus without complication, without long-term current use of insulin (HCC): - Type 2 diabetes mellitus with elevated A1c (8.3). - Recommended referral to custom decorating consultant for dietary counseling. Advised regular exercise, goal of 150 minutes per week. Discussed possibility of medication if lifestyle modifications are insufficient.Ordered repeat blood work. - Risks and side effects: Discussed increased risk of stroke, heart problems, and kidney problems associated with uncontrolled diabetes. Smoking addiction: - Smoking addiction acknowledged. - Offered assistance with smoking cessation. Bradycardia: - Bradycardia confirmed with heart rate as low as 39-45 bpm. Discussed risk of syncope due to insufficient cerebral perfusion. - Ordered EKG and Holter monitor for further evaluation. Referred to cardiology for specialist opinion. Advised to present to hospital if symptoms of palpitations or dizziness occur. - Risks and side effects: Discussed risk of syncope. This note was drafted using Ambient (AI) technology. The patient/patient's guardian has been informed and has consented to the use of this technology: Yes [1] Patient Active Problem List Diagnosis Hypertension IFG (impaired fasting glucose) Type 2 diabetes mellitus without complication, without long-term current use of insulin (HCC) Smoking Bradycardia [2] No Known Allergies [3] Current Outpatient Medications on File Prior to Visit Medication Sig Dispense Refill Alcohol Swabs 70 % pads Use to test blood sugar 2 times daily 100 each 0 amLODIPine (Norvasc) 10 MG tablet TAKE ONE TABLET DAILY 90 tablet 1 Blood Glucose Monitoring Suppl (FreeStyle [place]ita Lite) w/Device kit Use to test blood sugar 2 times daily 1 kit 0 glucose 4 g chewable tablet Chew 4 tablets (16 g) if needed for low blood sugar. 50 tablet 12 Lancets misc Use to test blood sugar 2 times daily 100 each 0 No current facility-administered medications on file prior to visit. documented in this encounter Plan of Treatment Pending Results Name Type Priority Associated Diagnoses Date /Time Comprehensive Metabolic Panel Lab Routine Other secondary hypertension Type 2 diabetes mellitus without complication, without long-term current use of insulin ([facility]) 02/07/2025 11:54 AM EST Lipid Panel, Standard Lab Routine Other secondary hypertension Type 2 diabetes mellitus without complication, without long-term current use of insulin ([facility]) 02/07/2025 11:54 AM EST Scheduled Orders Name Type Priority Associated Diagnoses Orde r Schedule TSH with Reflex to Free T4 Lab Routine Other secondary hypertension Type 2 diabetes mellitus without complication, without long-term current use of insulin ([facility]) Expected: 02/07/2025 (Approximate), Expires: 02/07/2026 Albumin, Random Urine W/Creatinine Lab Routine Type 2 diabetes mellitus without complication, without long-term current use of insulin ([facility]) Expected: 02/07/2025 (Approximate), Expires: 02/07/2026 Holter monitor - 48 hour Cardiac Services Routine Bradycardia Expected: 02/07/2025 (Approximate), Expires: 02/07/2027 Scheduled Referrals Name Type Priority Associated Diagnoses Order Schedule Referral to Cardiology Outpatient Referral Routine Bradycardia Expected: 02/07/2025 (Approximate), Expires: 02/07/2026 Referral to Nutrition Therapy Outpatient Referral Routine Type 2 diabetes mellitus without complication, without long-term current use of insulin ([facility]) Expected: 02/07/2025 (Approximate), Expires: 02/07/2026 documented as of this encounter Goals Goal Patient Goal Type Associated Problems Recent Progress Patient-Stated? Author Help patients manage their type 2 diabetes Care Plan Help patients manage their type 2 diabetes Claire Chavis MA Weekly blood pressure task Care Plan Weekly blood pressure task Claire Chavis MA Help patients manage their type 2 diabetes Care Plan Help patients manage their type 2 diabetes No Claire Graves MA Patient has chronic kidney disease Care Plan Patient has chronic kidney disease No Claire Graves MA Weekly blood pressure task Care Plan Weekly blood pressure task No Claire Graves MA Patient has chronic kidney disease Care Plan Patient has chronic kidney disease No Claire Graves MA Help patients manage their type 2 diabetes Care Plan Help patients manage their type 2 diabetes Carmen Mcgarry MD Help patients manage their type 2 diabetes Care Plan Help patients manage their type 2 diabetes No Carmen Fiore MD Patient has chronic kidney disease Care Plan Patient has chronic kidney disease No Karolyn Kamara MA Patient has chronic kidney disease Care Plan Patient has chronic kidney disease No Karolyn Kamara MA Weekly blood pressure task Care Plan Weekly blood pressure task No Karolyn Kamara MA Weekly blood pressure task Care Plan Weekly blood pressure task No Karolyn Kamara MA documented as of this encounter Procedures Procedure Name Priority Date/Time Associated Diagnosis Comments POCT GLUCOSE Routine 02/07/2025 1:08 PM EST Type 2 diabetes mellitus without complication, without long-term current use of insulin ([facility]) POCT GLYCATED HEMOGLOBIN, TOTAL Routine 02/07/2025 1:07 PM EST Type 2 diabetes mellitus without complication, without long-term current use of insulin ([facility]) CBC WITH AUTO DIFFERENTIAL Routine 02/07/2025 11:54 AM EST Other secondary hypertension Type 2 diabetes mellitus without complication, without long-term current use of insulin ([facility]) LIPID PANEL, STANDARD Routine 02/07/2025 11:54 AM EST Other secondary hypertension Type 2 diabetes mellitus without complication, without long-term current use of insulin ([facility]) COMPREHENSIVE METABOLIC PANEL Routine 02/07/2025 11:54 AM EST Other secondary hypertension Type 2 diabetes mellitus without complication, without long-term current use of insulin ([facility]) ECG 12-LEAD Routine 02/07/2025 11:50 AM EST Bradycardia documented in this encounter Results * POCT Glucose (02/07/2025 1:08 PM EST) Glucose Blood, POC 183 60 - 200 mg/dL [employer] Lot # [id number] Lot# Expiration Date Comment:random Blood Capillary blood specimen / Unknown 02/07/2025 1:08 PM EST Carmen Fiore MD POINT OF CARE TEST ENTER/ED IT ORDERABLES Final Result * (ABNORMAL) POCT Hgb A1c (02/07/2025 1:07 PM EST) [facility] Hemoglobin A1C 8.3(A) 4.0 - 5.7 % QC Media Lot # [id number] Lot# Expiration Date Blood 02/07/2025 1:07 PM EST Carmen Fiore MD POINT OF CARE TEST ENTER/ED IT ORDERABLES Final Result * (ABNORMAL) CBC auto differential (02/07/2025 11:54 AM EST) [facility] White Blood Count 6.5 4.8 - 10.8 X10*3/uL [facility] Red Blood Count 4.43 4.20 - 5.50 X10*6/uL [facility] Hemoglobin 13.0 12.0 - 16.0 g/dl [facility] Hematocrit 38.8 37.0 - 47.0 % [facility] Mean Corpuscular Volume 87.6 80.0 - 98.0 fL [facility] Mean Corpuscular Hemoglobin 29.3 27.0 - 33.0 pg [facility] Mean Corpuscular HGB Conc 33.5 31.0 - 35.0 g/dl [facility] Red Cell Distribution Width 13.6 11.0 - 16.0 % [facility] Platelet Count 297 160 - 400 X10*3/uL [facility] Mean Platelet Volume 11.0 9.4 - 12.3 fL [facility] Neutrophils Percent Auto 44.2(L) 45 - 73 % [facility] Imm Gran Pct Auto 0.2 0.0 - 0.4 % [facility] Lymphocytes Percent Auto 47.5(H) 20 - 40 % [facility] Monocytes Percent Auto 6.3 2 - 11 % [facility] Eosinophils Percent Auto 1.5 0 - 4 % [facility] Basophils Percent Auto 0.3 0 - 2 % [facility] NRBC Pct Auto 0.0 0.0 - 0.2 /100WBC [facility] Neutrophils Absolute Auto 2.9 2.0 - 8.3 x10*3/uL [facility] Imm Gran Abs Auto 0.01 0.00 - 0.03 X10*3/uL [facility] Lymphocytes Absolute Auto 3.1 1.2 - 4.9 X10*3/uL [facility] Monocytes Absolute Auto 0.4 0.1 - 1.2 X10*3/uL [facility] Eosinophils Absolute Auto 0.1 0.0 - 0.4 X10*3/uL [facility] Basophils Absolute Auto 0.0 0.0 - 0.2 X10*3/uL [facility] NRBC Abs Auto 0.000 0.0 - 0.012 X10*3/uL [facility] Blood Venous blood specimen / Unknown 02/07/2025 11:54 AM EST 02/07/2025 2:02 PM EST us Carmen Fiore MD LAB BLOOD ORDERABLES Final Result Performing Organization Address City/State/[facility] Co de Phone Number [facility] [address] [place] [phone] * ECG 12 lead (02/07/2025 11:50 AM EST) Narrative Carmen Fiore MD - 02/07/2025 11:50 AM EST HR 60 bpm. [place] -16 degrees. Sinus rhythm. No ST elevation or ST depression. No sign of LAE/HARESH. No sign of hypertrophy. us Carmen Fiore MD ECG ORDERABLES Final Resul t documented in this encounter Visit Diagnoses Diagnosis Other secondary hypertension- Primary Type 2 diabetes mellitus without complication, without long-term current use of insulin (HCC) Smoking addiction Bradycardia Other specified cardiac dysrhythmias Dietary counseling Dietary surveillance and counseling Exercise counseling Overweight documented in this encounter Additional Health Concerns Active Problems Noted Date Diagnosed Date Help patients manage their type 2 diabetes 02/07 Weekly blood pressure task 02/07/2025 Help patients manage their type 2 diabetes 02/07 Patient has chronic kidney disease 02/07/2025 Weekly blood pressure task 02/07/2025 Patient has chronic kidney disease 02/07/2025 Help patients manage their type 2 diabetes 02/07 Help patients manage their type 2 diabetes 02/07 Patient has chronic kidney disease 02/07/2025 Patient has chronic kidney disease 02/07/2025 Weekly blood pressure task 02/07/2025 Weekly blood pressure task 02/07/2025 Assessment Noted Time PHQ-9 Depression Total Score: 0 01/20/20 11:18 AM EDT documented as of this encounter Care Teams Assurance Manager Relationship Specialty Start Date End Date Carmen Fiore MD [address] [place] [phone] PCP - General Internal Medicine 03/29/18 documented as of this encounter
[2025-02-07 14:05] LABS: MANUAL DIFF FLAG NO
[2025-02-07 14:18] LABS: Hematocrit 38.8 % (37.0-47.0); Hemoglobin 13.0 g/dl (12.0-16.0); Imm Gran Abs Auto 0.01 X10*3/uL (0.00-0.03); Imm Gran Pct Auto 0.2 % (0.0-0.4); Lymphocytes Absolute Auto 3.1 X10*3/uL (1.2-4.9); Mean Corpuscular HGB Conc 33.5 g/dl (31.0-35.0); Mean Corpuscular Hemoglobin 29.3 pg (27.0-33.0); Mean Corpuscular Volume 87.6 fL (80.0-98.0); NRBC Abs Auto 0.000 X10*3/uL (0.0-0.012); NRBC Pct Auto 0.0 /100WBC (0.0-0.2); Platelet Count 297 X10*3/uL (160-400); Red Blood Count 4.43 X10*6/uL (4.20-5.50); White Blood Count 6.5 X10*3/uL (4.8-10.8)
[2025-02-07 14:38] LABS: Alanine Aminotransferase 35 U/L (0-31); Albumin Level 4.2 g/dL (3.5-5.0); Alkaline Phosphatase 87 U/L (39-117); Anion Gap 8 (12-20); Aspartate Amino Transferase 38 U/L (5-31); Blood Urea Nitrogen 11 mg/dL (9-16); Calcium 9.2 mg/dL (8.4-10.2); Carbon Dioxide 29 mmol/L (22-29); Chloride 103 mmol/L (96-108); Cholesterol 184 mg/dL (<200); Estimated Glomerular Filt Rate > 60; HDL Cholesterol 45 mg/dL (>40); Potassium 3.1 mmol/L (3.3-5.1); Sodium 137 mmol/L (135-145); Total Protein 7.4 g/dL (6.5-8.0); Triglycerides 105 mg/dL (<150)
--- OUTSIDE RECORDS SUMMARY | 2025-02-07 14:46 | XMS_ITS | Encounter Summary ---
Author Organization [employer] Address [address] [facility] 7t [place] [address] Care Team Providers Care Electronic Imaging System Operator Name Role Phone Carmen Fiore MD Primary Care Provider [phone] Encounter Details Date Type Department Care Team (Latest Contact Info) Description 02/07/2025 Travel Social History Tobacco Use Types Packs/Day [...] on file documented as of this encounter Goals Goal Patient Goal Type Associated Problems Recent Progress Patient-Stated? Author Help patients manage their type 2 diabetes Care Plan Help patients manage their type 2 diabetes No Claire Graves MA Weekly blood pressure task Care Plan Weekly blood pressure task No Claire Graves MA Help patients manage [...] their type 2 diabetes Carmen Mcgarry MD Patient has chronic kidney disease Care [...] Kamara MA documented as of this encounter Visit Diagnoses Not on filedocumented in this encounter Additional Health Concerns Active [...] documented as of this encounter Care Teams Electronic Imaging System Operator Relationship Specialty Start Date End Date Carmen Fiore MD [address] [place] [address] PCP - General Internal Medicine 03/29/18 documented as of this encounter
--- OUTSIDE RECORDS SUMMARY | 2025-02-07 14:46 | XMS_ITS | Clinical Summary ---
Author Organization [employer] Address [address] [place] [address] 7t [place] [address] Care Team Providers Care Environmental Adviser Name Role Phone Carmen Fiore MD Primary Care Provider [phone] Allergies No known active allergies Medications Lancets miscIndications :Type 2 diabetes mellitus without complication, without long-term current use of insulin ([facility]) Use to test blood sugar 2 times daily 100 each 06/01/2023 Active Alcohol Swabs 70 % padsIndications :Type 2 diabetes mellitus without complication, without long-term current use of insulin ([facility]) Use to test blood sugar 2 times daily 100 each 06/01/2023 Active Blood Glucose Monitoring Suppl ([employer] Lite) w/Device kitIndications: Type 2 diabetes mellitus without complication, without long-term current use of insulin ([facility]) Use to test blood sugar 2 times daily 1 kit 06/01/2023 Active glucose 4 g chewable tabletIndicatio ns:Type 2 diabetes mellitus without complication, without long-term current use of insulin ([facility]) Chew 4 tablets (16 g) if needed for low blood sugar. 50 tablet 12 06/01/2023 Active amLODIPine (Norvasc) 10 MG tablet TAKE ONE TABLET DAILY 90 tablet 1 10/03/2024 Active Active Problems Problem Noted Date Diagnosed Date Bradycardia 02/07/2025 Smoking 05/09/2024 Type 2 diabetes mellitus wit hout complication, without long-term current use of insulin 09/02/2023 IFG (impaired fasting glucose) 12/02/2016 Hypertension 04/28/2013 Encounters Date Type Department Care Team Description 02/07/2025 10:45 AM EST Office Visit [facility] [address] [place] [address] Carmen Fiore MD Other secondary hypertension (Primary Dx); Type 2 diabetes mellitus without complication, without long-term current use of insulin (HCC); Smoking addiction; Bradycardia; Dietary counseling; Exercise counseling; Overweight 02/07/2025 Travel 02/06/2025 Telephone [facility] [address] [place] [address] Carmen Fiore MD Chart Prep 01/30/2025 Patient Outreach [facility] [address] [place] [address] Carmen Fiore MD Pre-visit Planning ([facility] screening completed on 05/17/24) from Last 3 Months Immunizations Immunization Administration Dates Next Due Moderna Covid-19 Vaccine 12+ 09/28/2020,09/01/19 21 Tdap 10/03/2015,01/12/2007 Family History Medical History Relation Name Comments [...] Mass Index 29.85 02/07/2025 11:11 AM EST Plan of Treatment Health Maintenance Due Date Last Done Comments CT Colonography 1960 FIT DNA/Cologuard 1960 FIT 1960 FOBT 1960 Sigmoidoscopy 1960 HIB Vaccines (1 of 1 - Risk 1-dose series) 02/06/1960 Meningococcal Vaccine (1 - Risk 2-dose series) 1960 Eye Exam 1968 Meningococcal B Vaccine (1 of 4 - Increased Risk) 1968 Alcohol/Substance Use Screening 1970 Diabetes: Urine Protein Screening 1977 Zoster Vaccines (1 of 2) 2008 Colonoscopy 08/02/2023 08/01/2013 Lipid Panel 05/31/2024 02/07/2025, 03/0 07/2023, 10/10/2021 Depression Screening 01/19/2025 01/20/2024, 01/20/20 Lung Cancer Screening 02/15/2025 02/16/2024 SDOH Screening 05/02/2025 05/02/2024 Diabetes: Hemoglobin A1C 05/10/2025 025, 05/09/2024, 01/20/2024, Additional history exists Influenza Vaccine (#1) 2025 Postp oned from 11/27/2024 (Patient Refused) DTaP/Tdap/Td Vaccines (3 - Td or Tdap) 10/02/2025 10/03/2015, 01/12/2007 COVID-19 Vaccine ( - season) 2026 09/28/2020, 08/31/2020 Postponed from 11/27/2024 (Patient Refused) Colorectal Cancer Screening 02/07/2026 Postponed from 1960 (Patient Refused) Diabetes: Foot Exam 02/07/2026 02/07/2025, Pneumococcal Vaccine: 50+ Years (1 of 2 - PCV) 02/07/2026 Postponed from 1977 (Patient Refused) Tobacco Screening 02/07/2026 02/07/2025 HPV/Cotest 07/06/2029 07/06/2024 Pap Smear 07/06/2029 07/06/2024 RSV Patients and Patients Aged 60 years or older (1 - 1-dose 75+ series) 2033 Hepatitis C Screening Discontinued 10/10/2021 HPV Vaccines Aged Out No longer eligi [...] age to complete this topic Mammogram Discontinued RSV under 20 months Aged Out No longe r eligible based on patient's age to complete this topic Rotavirus Vaccines Aged Out No longer eligible based on patient's age to complete this topic Goals Goal Patient Goal Type Associated Problems [...] blood pressure task No Karolyn Kamara MA Procedures Procedure Name Priority Date/Time Associated Diagnosis Comments POCT GLUCOSE Routine 02/07/2025 1:08 PM EST Type 2 diabetes mellitus without complication, without long-term current use of insulin ([facility]) POCT GLYCATED HEMOGLOBIN, TOTAL Routine 02/07/2025 1:07 PM EST Type 2 diabetes mellitus without complication, without long-term current use of insulin ([facility]) LIPID PANEL, STANDARD Routine 02/07/2025 11:54 AM EST Other secondary hypertension Type 2 diabetes mellitus without complication, without long-term current use of insulin ([facility]) COMPREHENSIVE METABOLIC PANEL Routine 02/07/2025 11:54 AM EST Other secondary hypertension Type 2 diabetes mellitus without complication, without long-term current use of insulin ([facility]) CBC WITH AUTO DIFFERENTIAL Routine 02/07/2025 11:54 AM EST Other secondary hypertension Type 2 diabetes mellitus without complication, without long-term current use of insulin ([facility]) ECG 12-LEAD Routine 02/07/2025 11:50 AM EST Bradycardia HPV DNA, LOW/HIGH RISK Routine 12:00 AM EDT PAP SMEAR Routine 07/06/2024 12:00 AM EDT Cervical cancer screening LUNG CANCER SCREENING Routine 02/16/2024 1:16 PM EST ZZZ HISTORICAL HEPATITIS C AB W/REFL TO HCV RNA, QN, PCR Routine 10/10/2021 8:44 AM EDT COLONOSCOPY Routine 08/01/2013 from Last 3 Months or Most Recently Relevant to Health Maintenance Results * POCT Glucose (02/07/2025 1:08 PM EST) Pathologist [facility] Glucose Blood, POC 183 60 - 200 mg/dL QC Media Lot # [id number] Lot# Expiration Date Comment:random Blood Capillary blood specimen / Unknown 02/07/2025 1:08 PM EST Carmen Fiore MD POINT OF CARE TEST ENTER/ED IT ORDERABLES Final Result * (ABNORMAL) POCT Hgb A1c (02/07/2025 1:07 PM EST) [facility] Hemoglobin A1C 8.3(A) 4.0 - 5.7 % QC Media Lot # [id number] Lot# Expiration Date [id number] Blood 02/07/2025 1:07 PM EST Carmen Fiore MD POINT OF CARE TEST ENTER/ED IT ORDERABLES Final Result * (ABNORMAL) CBC auto differential (02/07/2025 11:54 AM EST) [facility] White Blood Count 6.5 4.8 - 10.8 X10*3/uL [facility] Red Blood Count 4.43 4.20 - 5.50 X10*6/uL [facility] Hemoglobin 13.0 12.0 - 16.0 g/dl [facility] Hematocrit 38.8 37.0 - 47.0 % [facility] Mean Corpuscular Volume 87.6 80.0 - 98.0 fL [facility] Mean Corpuscular Hemoglobin 29.3 27.0 - 33.0 pg [facility] Mean Corpuscular HGB Conc 33.5 31.0 - 35.0 g/dl [facility] Red Cell Distribution Width 13.6 11.0 - 16.0 % [facility] Platelet Count 297 160 - 400 X10*3/uL [facility] Mean Platelet Volume 11.0 9.4 - 12.3 fL [facility] Neutrophils Percent Auto 44.2(L) 45 - 73 % [facility] Imm Gran Pct Auto 0.2 0.0 - 0.4 % [facility] Lymphocytes Percent Auto 47.5(H) 20 - 40 % [facility] Monocytes Percent Auto 6.3 2 - 11 % [facility] Eosinophils Percent Auto 1.5 0 - 4 % [facility] Basophils Percent Auto 0.3 0 - 2 % [facility] NRBC Pct Auto 0.0 0.0 - 0.2 /100WBC [facility] Neutrophils Absolute Auto 2.9 2.0 - 8.3 x10*3/uL [facility] Imm Gran Abs Auto 0.01 0.00 - 0.03 X10*3/uL [facility] Lymphocytes Absolute Auto 3.1 1.2 - 4.9 X10*3/uL [facility] Monocytes Absolute Auto 0.4 0.1 - 1.2 X10*3/uL [facility] Eosinophils Absolute Auto 0.1 0.0 - 0.4 X10*3/uL [facility] Basophils Absolute Auto 0.0 0.0 - 0.2 X10*3/uL [facility] NRBC Abs Auto 0.000 0.0 - 0.012 X10*3/uL [facility] Blood Venous blood specimen / Unknown 02/07/2025 11:54 AM EST 02/07/2025 2:02 PM EST us Carmen Fiore MD LAB BLOOD ORDERABLES Final Result Performing Organization Address City/[facility]/ZIP Co de Phone Number [facility] [address] [place] [address] [phone] * ECG 12 lead (02/07/2025 11:50 AM EST) Narrative Carmen Fiore MD - 02/07/2025 11:50 AM EST HR 60 bpm. [place] -16 degrees. Sinus rhythm. No ST elevation or ST depression. No sign of LAE/HARESH. No sign of hypertrophy. us Carmen Fiore MD ECG ORDERABLES Final Resul t * HPV DNA, Low/High Risk (07/06/2024 12:00 AM EDT) Pathologist [facility] HPV High Risk Negative Negative [facility] HPV Genotype 16 Negative Negative [facility] HPV Genotype 18 Negative Negative [facility] Comment:HPV testing performe d at (CLIA#[id number]), [address] [place] [address].Testing for HPV was performed using the [employer] KENN 6800system. The presence of HPV in the female genital tract isassociated with a number of diseases, including cervicalcarcinoma. The HPV DNA high risk pool tests for HPV 31, 33,35, 39, 45, 51, 52, 56, 58, 59, 66 and 68. The testing forHPV 16 and 18 genotypes has also been performed. A positiveresult indicates detection of nucleic acid sequences fromone or more subtypes, whereas a negative result indicatessuch sequences were not detected. 07/06/2024 07/07/2024 6:0 4 AM EDT us Shaun GONZALEZ LAB BLOOD ORDERABLES Oriana l Result Performing Organization Address City/[facility]/ZIP Co de Phone Number [facility] [address] [place] [address] [phone] * Pap Smear (07/06/2024 12:00 AM EDT) Swab Cervix uteri structure / Unknown 07/06/2024 07/07/2024 6:04 AM EDT [facility] - 07/11/2024 9:54 AM EDT ----- ------- Name: Giuliana Bill Age/Sex: 63/F : 1960 Unit#: [id number] Attend Dr: SHAUN MÉNDEZ CNM Re07/06/24 Status: [facility] Location: .CHCLNP Disch: ----- ------- SPEC : [id number] RECD: 07/07/24 STATUS: [facility] NUM: [id number] BASSAM: 07/06/24-[address]: SHAUN MÉNDEZ CNM ENTERED: 07/07/24 SP TYPE: Pap Smr OT : ORDERED: Pap Smear Interpretation Satisfactory for evaluation. Negative for intraepithelial lesion or malignancy. HPV High Risk: Negative HPV Genotyping 16: Negative HPV Genotyping 18: Negative Clinical Information LMP:Post menopausal Previous PAP test:Unknown date/findings Material Received ThinPrep-Cervical ----- ------- Signed (signature on file) Randy WeissKEO ([facility]) 07/11/24 0954 ----- ------- END OF REPORT Shaun Méndez [facility] CYTOLOGY ORDERABLES F inal Result [facility] [address] [place] [phone] * Lung Cancer Screning (02/16/2024 1:16 PM EST) Anatomical Region Laterality Modality Other Historical Provider HEALTH MAINTENANCE Final Result * HEPATITIS C AB W/REFL TO HCV RNA, QN, PCR (10/10/2021 8:44 AM EDT) HEPATITIS C ANTIBODY NON-REACT KILO NON-REACT KILO [facility] INDEX 0.11 <1.00 [facility] Comment: HCV antibody was non-reactive. There is no laboratory evidence of HCV infection. In most cases, no further action is required. However, if recent HCV exposure is suspected, a test for HCV RNA (test code 71503) is suggested. For additional information please refer to http://education.[employer]/faq/ZWI85x7 (This link is being provided for informational/ educational purposes only.) 10/10/2021 8:44 AM EDT Carmen Fiore MD HISTORICAL/NON ORDERABLE LA BS Final Result [facility] [address] [place] [address], * Colonoscopy (08/01/2013) Colonoscopy Normal Normal Narrative Cynthia Gandhi - 08/01/2013 Recommended 5 year follow up us Historical Provider MD HEALTH MAINTENANCE Final Result from Last 3 Months or Most Recently Relevant to Health Maintenance Additional Health Concerns Active Problems Noted Date [...] task 02/07/2025 Weekly blood pressure task 02/07/2025 Insurance MEDICARE Care Teams Environmental Adviser Relationship Specialty Start Date End Date Carmen Fiore MD [address] [place] [address] [place] [address] PCP - General Internal Medicine 03/29/18
--- OUTSIDE RECORDS SUMMARY | 2025-02-07 14:46 | XMS_ITS | Encounter Summary ---
Author Organization [email or web address] Address [address] [place] [address] 7 [place] [address] Care Team Providers Care Recovery Coach Name Role Phone Carmen Fiore MD Primary Care Provider [phone] Encounter Details Date Type Department Care Team (Late st Contact Info) Description 02/18/2024 Orders Only [facility] [address] [place] [address] Provider, MD Cristi Social History Tobacco Use [...] Procedure Name Priority Date/Time Associated Diagnosis Comments HPV DNA, LOW/HIGH RISK Routine 07/06/2024 12:00 AM EDT LUNG CANCER SCREENING Routine 02/16/2024 1:16 PM EST documented in this encounter Results * HPV DNA, Low/High Risk (07/06/2024 12:00 AM EDT) HPV High Risk Negative Negative [facility] HPV Genotype 16 Negative Negative [facility] HPV Genotype 18 Negative Negative [facility] Comment:HPV testing performe d at [facility] (CLIA#[id number]), [address] [place] [address].Testing for HPV was performed using the [employer] KENN 6800system. The presence of HPV in [...] detected. 07/06/2024 07/07/2024 6:0 4 AM EDT Debora Camarena CNM LAB BLOOD ORDERABLES Oriana l Result [facility] [address] [place] [address] [phone] * Hm Lung Cancer Screning (02/16/2024 1:16 PM EST) Anatomical Region Laterality Modality Other Historical Provider HEALTH MAINTENANCE Final Result documented in this encounter Visit Diagnoses Not on filedocumented in this encounter Additional Health Concerns Assessment Noted Time PHQ-9 Depression Total Score: 0 01/20/20 11:18 AM EDT documented as of this encounter Care Teams Recovery Coach Relationship Specialty Start Date End Date Carmen Fiore MD [address] [place] [phone] PCP - General Internal Medicine 03/29/18 documented as of this encounter
--- OUTSIDE RECORDS SUMMARY | 2025-02-07 14:46 | XMS_ITS | Encounter Summary ---
Author Organization [employer] Address [address] [facility] 7t [place] [address] Care Team Providers Care Ict Educator Name Role Phone Carmen Fiore MD Primary Care Provider [phone] Encounter Details Date Type Department Care Team (Late st Contact Info) Description 10/02/2022 Orders Only [facility] [address] [place] [address] Lori Rivera LPN Social History Tobacco Use [...] EDT) Sodium 143 135 - 145 mmol/L [facility] Potassium 4.1 3.3 - 5.1 mmol/L [facility] Chloride 107 96 - 108 mmol/L [facility] Carbon Dioxide 28 22 - 29 mmol/L [facility] Anion Gap 12 12 - 20 [facility] Urea Nitrogen (BUN) 9 9 - 16 mg/dL [facility] Creatinine, Serum 0.86 0.5 - 1.4 mg/dL [facility] Estimated Glomerular Filt Rate >60 [facility] Comment:NOTE: For -Am erican individuals, multiply the result by 1.210.Chronic Kidney Disease: Estimated GFR < 60 mL/min/1.44q2Pqttga Kidney Disease: Estimated GFR < 15 mL/min/1.73m2 Glucose Fasting 118(H) 60 - 99 mg/dL [facility] Comment:A fasting glucose fr om 100-125 mg/dl is considered impaired(pre-diabetes). Calcium 9.7 8.4 - 10.2 mg/dL [facility] 12/02/2022 10:5 7 AM EDT 12/02/2022 2:09 PM EDT Carmen Fiore MD LAB BLOOD ORDERABLES Final Result Performing Organization Address City/State/[facility] Co de Phone Number [facility] [address] [place] [address] [phone] documented in this encounter Visit Diagnoses Not on filedocumented in this encounter Care Teams Ict Educator Relationship Specialty Start Date End Date Carmen Fiore MD [address] [place] [address] PCP - General Internal Medicine 03/29/18 documented as of this encounter
--- OUTSIDE RECORDS SUMMARY | 2025-02-07 14:46 | XMS_ITS | Encounter Summary ---
Author Organization [employer] Address [address] [facility] [address]t [place] [address] Care Team Providers Care Engine Generator Assembler Name Role Phone Carmen Fiore MD Primary Care Provider [phone] Encounter Details Date Type Department Care Team (Late st Contact Info) Description 02/01/2023 Abstract [facility] [address] [place] [address] Carmen Fiore MD [address] [place] [phone] Social History Tobacco Use Types Packs/Day Years [...] documented as of this encounter Care Teams Engine Generator Assembler Relationship Specialty Start Date End Date Carmen Fiore MD [address] [place] [phone] PCP - General Internal Medicine 03/29/18 documented as of this encounter
--- OUTSIDE RECORDS SUMMARY | 2025-02-07 14:46 | XMS_ITS | Encounter Summary ---
Author Organization [employer] Address [address] [place] [address] [address] [place] [address] Care Team Providers Care In House Counsel Name Role Phone Carmen Fiore MD Primary Care Provider [phone] Encounter Details Date Type Department Care Team ([facility] st Contact Info) Description 06/02/2023 Orders Only [facility] [address] [place], [place] [phone] Carmen Fiore MD [address] [place], [place] [phone] Social History Tobacco Use Types Packs/Day Years [...] documented as of this encounter Care Teams In House Counsel Relationship Specialty Start Date End Date Carmen Fiore MD [address] [place] [phone] PCP - General Internal Medicine 03/29/18 documented as of this encounter
--- OUTSIDE RECORDS SUMMARY | 2025-02-07 14:46 | XMS_ITS | Encounter Summary ---
Author Organization [email or web address] Address [address] [place] [address] [address] [place] [address] Care Team Providers Care Latex Caster Name Role Phone Carmen Fiore MD Primary Care Provider [phone] Reason for Visit * Reason Onset Date Comments Chart Prep 02/06/2025 Encounter Details Date Type Department Care Team ([facility] Contact Info) Description 02/06/2025 Telephone [facility] [address] [place] [address] Carmen Fiore MD [address] [place], [place] [phone] Chart Prep Social History Tobacco Use Types Packs/Day Years [...] as of this encounter Miscellaneous Notes * Telephone Encounter - Simona Zhao MA - 02/06/2025 3:37 PM EST Chart Prep Labs: done Images: done Referrals: complete Vaccines due: Covid, Flu, PCV20, Tdap, and Zoster Screenings: colonoscopy, eye exam, and foot exam Overdue care gaps: A1c, Glucose, SBIRT, PHQ-9, and Tobacco documented in this encounter Plan of Treatment Not on file documented as of this encounter Visit Diagnoses Not on filedocumented in this encounter Additional Health Concerns Assessment Noted Time PHQ-9 Depression Total Score: 0 01/20/20 24 11:18 AM EDT documented as of this encounter Care Teams Latex Caster Relationship Specialty Start Date End Date Carmen Fiore MD [address] [place], [place] [address] [place] [address] PCP - General Internal Medicine 03/29/18 documented as of this encounter
[2025-02-07 16:01] LABS: Microalbum/Creatinine Ratio Ur 7.3 ug/mg cr (<30)
== END 2025-02-07 11:54 | disposition home or self-care (01) ==
LOC: HO.CHCLDS 11:53
PROVIDERS: Visit Provider Internal Medicine
DX: E11.9 Type 2 diabetes mellitus without complications (principal); I15.8 Other secondary hypertension
CPT/HCPCS: 36415; 80053; 80061; 82043; 82570; 84443; 85025

== ENCOUNTER → 2025-02-20 10:15 | Outpatient (REF) | payer MEDICARE, SELFPAY | LOC: HO.CARD 10:15 | PROVIDERS: PCP Internal Medicine; Visit Provider Internal Medicine | DX: R00.1 Bradycardia, unspecified (principal) | CPT/HCPCS: 93225 ==

== ENCOUNTER → 2025-02-20 10:20 | Outpatient (BNV) | payer MEDICARE, SELFPAY | PROVIDERS: PCP Internal Medicine; Visit Provider Internal Medicine | DX: I47.19 Other supraventricular tachycardia (principal); R00.1 Bradycardia, unspecified | CPT/HCPCS: 93227 ==